=== PATIENT | male | born 1960 | race Caucasian/White ===

== ENCOUNTER 2024-12-22 08:10 | Outpatient (OUT) | payer MEDICARE, SELFPAY ==
--- NOTE | 2024-12-22 08:22 | P.CN_ITS ---
Consult Note: HPI Data of Consult Patient: new to practice Consult date: 12/22/24 Requesting Physician: Tiffany Akhtar NP Primary Care Provider: MICHAEL PAGE Consult Narrative Reason for consult: establish care Narrative: Gage Knight a pleasant 64 year old male presents for evaluation of chronic back pain post lumbar discectomy and revision in [address] Cedeno. Pt continues to endorse moderate pain in right paraspinal muscles of thoracic spine unresponsive to heat, ice, stretching, tylenol, nsaids, muscle relaxers. Pain today 2/10 increasing to 10/10 at times. reports cramping soreness in thoracic. CHRISS 20%. cc:: CC: Tiffany Akhtar NP Review of Systems 2 ROS0 Musculoskeletal Reports: back pain Exam Constitutional Documenting provider has reviewed patient's vital signs: yes Common normals: no apparent distress, oriented x3, healthy appearing, alert and well nourished General appearance: cooperative HENMT Common normals: normocephalic, hearing grossly normal bilaterally and moist oral mucous membranes Head and scalp: normocephalic Eye Common normals: PERRL Pupil: PERRL Neck & C-Spine Common normals: full ROM General: normal visual inspection Chest Common normals: inspection of chest normal Respiratory Common normals: normal respiratory effort, no retractions and no use of accessory muscles Back & Pelvis Thoracic spine/upper back: pain with ROM, thoracic spinal tenderness T-spine tenderness location: T9, T10 and T11, paraspinal muscle tenderness Thoracic paraspinal muscle tenderness: right Right thoracic paraspinal muscle tenderness: T9, T10 and T11 and paraspinal muscle spasm Lumbar spine/lower back: ROM limited and straight leg raise negative bilaterally Other: moderate pain over right erector spinae Back image (male): 2 1. Neuro Common normals: oriented x3 Sensorium/orientation: alert Psych Common normals: mental status grossly normal, thought process normal, cooperative, affect normal, speech normal and activity/motor behavior normal Speech: normal speech Thought process: normal thought process Results Additional Findings Additional findings: If on a controlled substance or opioids, I have checked an [place] report on this patient and there are no aberrancies noted in the prescribing history.??If on a controlled substance or opioid a drug screen was completed and reviewed within the last year, and if there has not been a drug screen completed we ordered one today to monitor higher risk, state monitored pain medication use. As part of providing excellent, safe, comprehensive care, the following was completed at our patient's visit: 1. A medication reconciliation and review to ensure accurate knowledge of current/active medications, including asking our patients to inform us about any [id number] medications or herbal remedies/nutritional supplements/alternative remedies. 2. A review to specifically ensure our patients have had annual screening for screening for depression, screening for tobacco use, and screening for unhealthy alcohol use. For concerning screenings had a discussion with the patient, provided patient education, and recommended follow-up with primary care provider when appropriate. If patient noted with a risk of falling, they received education on strength, gait, and balance training to prevent future risk of falling. Portions of this note may have been carried over from the previous visit and updated as appropriate. Please note this office utilizes paper charting in addition to the electronic medical record. A list of current medications, vitals, and PMH is available there as the clinical staff outside of myself do not have access to [employer] charting during the clinic day operations. As part of providing quality comprehensive care the current medications, vitals, and PMH were reviewed in the paper chart. Assessment and Plan Assessment and Plan (1) Thoracic spondylosis: (2) Myalgia, other site: (3) Failed back syndrome: Plan update thoracic xray to assess facet changes, consider mbbs/rfas for facet mediated pain advised to trial tens at home for myofascial pain/spasms start transdermal cream 10a BID-QID PRN pain to affected areas continue heat/ice PRN continue stretching and HEP as tolerated f/u 3 weeks to evaluate response to transdermal cream and TENS. consider TPI
== END 2024-12-22 08:11 | disposition home or self-care (01) ==
LOC: PM 08:12
PROVIDERS: PCP Family Medicine; Visit Provider Nurse Practitioner
DX: M47.814 Spondylosis without myelopathy or radiculopathy, thoracic region (principal); M79.18 Myalgia, other site; M96.1 Postlaminectomy syndrome, not elsewhere classified; M51.34 Other intervertebral disc degeneration, thoracic region
CPT/HCPCS: 72070; G0463

== ENCOUNTER 2024-12-22 09:04 | Outpatient (OUT) | payer MEDICARE, SELFPAY ==
--- NOTE | 2024-12-22 09:24 | XR_ITS ---
The [address] [address] Patient Name: KAILASH BALDERRAMA MRN: [id number] date: 1960 Sex: M Assigned Patient Location: PM Current Patient Location: Accession/Order Number: [id number] Exam Date: 12/22/2024 09:20 Report Date: 12/22/2024 10:19 At the request of: PERRI QUEZADA NP Procedure: XR thoracic spine 2V THORACIC SPINE -2 views: CLINICAL HISTORY: Low thoracic back pain radiating between the shoulder blades. No recent injury. COMPARISON: None AP and lateral views were obtained. There is no evidence of compression fracture or displacement. The pedicles are intact. This spaces are maintained. There is multilevel endplate spurring.. There are no paraspinal soft tissue abnormalities. XR/XR thoracic spine 2V IMPRESSION: DEGENERATIVE CHANGES. NO ACUTE BONY FINDINGS. Impression dictated by: Mary Powers M.D. 12/22/2024 10:19 AM Dictation Location: [place] [address] Electronically authenticated by: [id number] Date: 12/22/2024 10:19
== END 2024-12-22 09:05 | disposition home or self-care (01) ==
LOC: RAD 09:05
PROVIDERS: PCP Family Medicine; Visit Provider Nurse Practitioner
DX: M47.814 Spondylosis without myelopathy or radiculopathy, thoracic region (principal); M51.34 Other intervertebral disc degeneration, thoracic region
CPT/HCPCS: 72070